=== PATIENT | female | born 1955 | race Two or more races ===

== ENCOUNTER 2017-08-22 08:25 | Day surgery (SDC) | payer BC ==
[~2017-08-22 08:25] MED LIST: Advil200 M1 PO; Mobic15 MG; ZYRTEC10 M1
== END 2017-08-22 23:27 | disposition home or self-care (01) ==
LOC: MOI MAM 08:25
PROC: 0HBU3ZX Excision of Left Breast, Percutaneous Approach, Diagnostic (ICD-10-PCS; principal; 2017-08-22)
DX: R92.8 Other abnormal and inconclusive findings on diagnostic imaging of breast (principal)
CPT/HCPCS: 19083; 77065; 88305; A4648; G0279

== ENCOUNTER 2025-03-25 05:42 | Day surgery (SDC) | payer BC ==
[2025-03-04 08:40] VITALS: BP 143/93
[2025-03-25] VITALS (15 sets, daily range): BP systolic 97–134; BP diastolic 67–91
[~2025-03-25] VITALS: Ht 162.6 cm; Wt 88.0 kg
[~2025-03-25 05:42] MED LIST changes: +DYAZIDE 37.5-21 EACH PO
[2025-03-25] MEDS ORDERED: Tranexamic Acid 100 ML IV SCH (06:20)
[2025-03-25] MEDS ORDERED: Ropivacaine 0.5% HCl/Pf 123.125 MG,EPINEPHrine HCL 0.25 MG,Ketorolac Tromethamine 15 MG... INFIL SCH (06:20)
[2025-03-25] MEDS ORDERED: CeFAZolin Sodium 2,000 MG in NS 100 ML IV SCH ×2 (06:20→15:30)
[2025-03-25] MEDS ORDERED: Chlorhexidine Mouth Care 15 ML UDC MT SCH (06:20)
--- NOTE | 2025-03-25 06:54 | NUR ---
History, Chart, Medications and Allergies reviewed before start of procedure. Pre-Op teaching done. Pt verbalizes understanding. Patient confirms NPO status and agrees with scheduled surgery. PT BELONGINGS BAG PLACED UNDER GURNEY. LABELED ZIP LOCK BAG GIVEN TO SCOUT LEASER FOR PT GLASSES. PT UNABLE TO REMOVE RING ON L HAND 4TH FINGER. CHRISTIANAEY CONSENT SIGNED.
[2025-03-25] MEDS ORDERED: FentaNYL Citrate 50 MCG/ML 2 ML Injection ONE (06:57)
[2025-03-25] MEDS ORDERED: Midazolam HCl 1MG / ML 2ML Vial ONE (06:58)
[2025-03-25] MEDS ORDERED: Prochlorperazine Edisylate 10 mg Vial IV PRN (07:40)
[2025-03-25] MEDS ORDERED: Phenylephrine HCl 100 MCG/ML-NS 10MLSYR (1MG/10ML) ONE (07:43)
[2025-03-25] MEDS ORDERED: Metoclopramide HCl 5MG / ML 2ML Vial IV PRN (07:45)
[2025-03-25] MEDS ORDERED: Ondansetron HCl 2 MG / ML 2ML Vial IV PRN (07:45)
[2025-03-25] MEDS ORDERED: Magnesium Hydroxide Conc 10 ML UDC PO PRN (07:45)
[2025-03-25] MEDS ORDERED: ePHEDrine Sulfate 50 MG/ML 1ML Injection ONE (07:50)
[2025-03-25] MEDS ORDERED: HYDROmorphone HCl/Pf 1MG SYR IV PRN (07:50)
[2025-03-25] MEDS ORDERED: Ondansetron HCl 2 MG / ML 2ML Vial ONE (07:52)
[2025-03-25] MEDS ORDERED: Dexamethasone Sod Phos 10 MG/ML 1ML VIAL ONE (07:52)
[2025-03-25] MEDS ORDERED: FLU VACC TS2025(65UP)/MF59C/PF 45 MCG/0.5 ML SYRINGE IM SCH (07:55)
--- NOTE | 2025-03-25 08:28 | NUR ---
03/25/25 0828 Keena Elliott SPINAL BLOCK COMPLETED BY UPON ENTRY TO OR.
[2025-03-25] MEDS ORDERED: Ketorolac Tromethamine 15mg Vial IV SCH (12:00)
--- NOTE | 2025-03-25 12:09 | NUR ---
1040 PT ARRIVED TO FLOOR FROM DAY SURGERY. AXO4. VSS. SPINAL BLOCK EFFECTS STILL IN PLACE BUT DULL SENSATION INTACT PER PT REPORT. DRESSING CDI - PRINEO. COLD PACK IN PLACE. TOLERATING PO INTAKE. DENYING PAIN.
[2025-03-25] MEDS ORDERED: ACET500 PO (13:14)
[2025-03-25] MEDS ORDERED: ASPI81CH PO (13:17)
[2025-03-25] MEDS ORDERED: DOCU100 PO (13:17)
[2025-03-25] MEDS ORDERED: OXYC5 PO (13:18)
--- NOTE | 2025-03-25 17:41 | NUR ---
PT DC'D @1716 VIA WHEELCHAIR NO ACUTE CHANGES POST ASSUMPTION OF CARE. PT DD NOT REQUIRE PRN PAIN MEDICATION ADMINISTRATION. WORKED WITH PHYSICAL THERAPY - DEEMED OK TO DC. PT VOIDED. TOELRATED FOOD. DENIED NAUSEA. PRINEO DRESSING CDI. IV DC'D. DC INSTRUCTIONS PROVIDED TO PT AND SPOUSE. ALL BELONGINGS WITH PT. PT WHEELED OUT OF FACILITY TO PERSONAL VEHICLE.
[2025-03-26] MEDS ORDERED: Triamter/HCthiazide 37.5/25 MG 1 Tab PO PRN (09:00)
== END 2025-03-25 17:16 | disposition home or self-care (01) ==
LOC: ORSCMMR 05:42 → ORD 07:30 → SURS 10:17 → ORSCMMR 17:16
PROVIDERS: Orthopaedic Surgery
PROC: 0SR90JA Replacement of Right Hip Joint with Synthetic Substitute, Uncemented, Open Approach (ICD-10-PCS; principal; 2025-03-25 07:30)
DX: M16.11 Unilateral primary osteoarthritis, right hip (principal); E66.9 Obesity, unspecified; Z68.33 Body mass index [BMI] 33.0-33.9, adult
CPT/HCPCS: 72170; 97110; 97116; 97162; 97530; A9270; C1776; J0166; J0690; J0735; J0780; J1100; J1885; J2250; J2371; J2405; J2704; J2795; J3010; J7120